=== PATIENT | female | born 1980 ===

== ENCOUNTER 2018-03-15 13:43 | Emergency (ER) | payer OTHER ==
[2018-03-15] MEDS ORDERED: Sodium Chloride 0.9% 1,000 ML IV STA (14:48)
--- NOTE | 2018-03-15 15:11 | ED PDOC ---
HPI: Abdomen History Per: Patient Additional Complaint(s): 37 y/o F presents to ED complaining of feverm chills, abdominal pain, nausea, multiple episodes of vomiting, diarrhea and generalized body aches that began at 1am today. Pt reports vomiting ~20 times, non-bloody, non-bilious vomit. Pt reports had >3 episodes of diarrhea, watery, non-bloody and non-mucous. 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 No recent travel and not eating out recently. Pt denies cough, nasal congestion, runny nose, chest pain, SOB, wheezing, rash or neck stiffness. -Pt was given Motrin and Zofran 2 hours ago, pain improved mildly but still nauseous. Pt is not tolerating PO, as she keep vomiting and could not hold gatorade at home. PMD: [facility] Meds: None PMHx: denied PSHx: denied SHx: Pt smokes and drinks alcohol socially. No rec drugs. OBGYN Hx: LMP 1 week ago, regular with normal bleeding. Pt is sexually active with 1 man, currently on OCP's and uses condoms. <Mahamed Clark - Last Filed: 03/15/18 14:52> <Stu Devi - Last Filed: 03/15/18 17:11> Time Seen by Provider: 03/15/18 14:37 Chief Complaint (Nursing): GI Problem Supervising Attending Note - Supervising Attending Note The Documented history was done by the: Physician Jive Developer The documented physical exam was done by the: Physician Jive Developer The documented procedures were done by the: Physician Jive Developer - Attestation: I have personally seen and examined this patient.: Yes I have fully participated in the care of the patient.: Yes I have reviewed all pertinent clinical information: Yes - Notes: Notes:: Abd pain diffuse like bubbling and cramping. <Stu Devi - Last Filed: 03/15/18 17:11> Past Medical History Vital Signs: Last Vital Signs Temp 98.4 F 03/15/18 14:09 Pulse 90 03/15/18 14:09 Resp 16 03/15/18 14:09 BP 121/73 03/15/18 14:09 Pulse Ox 97 03/15/18 14:09 - Medical History PMH: No Chronic Diseases - Surgical History Surgical History: No Surg Hx - Family History Family History: States: No Known Family Hx - Living Arrangements Living Arrangements: With Family - Social History Current smoker - smoking cessation education provided: Yes (socially) Alcohol: Social Drugs: Denies <Mahamed Clark - Last Filed: 03/15/18 14:52> Vital Signs: Last Vital Signs Temp 98.4 F 03/15/18 14:09 Pulse 90 03/15/18 14:09 Resp 16 03/15/18 14:09 BP 121/73 03/15/18 14:09 Pulse Ox 97 03/15/18 15:17 <Stu Devi - Last Filed: 03/15/18 17:11> - Home Medications Home Medications: Ambulatory Orders Medication Instructions Recorded Dicyclomine [Dicyclomine HCl] 10 mg PO DAILY PRN 5 Days cap 03/15/18 Famotidine [Pepcid] 20 mg PO DAILY PRN #6 tab 03/15/18 Ondansetron [Zofran] 4 mg PO Q8H PRN #6 tab 03/15/18 - Allergies Allergies/Adverse Reactions: Allergies Allergy/AdvReac Type Severity Reaction Status Date / Time No Known Allergies Allergy Verified 03/15/18 14:09 Review of Systems Constitutional: Positive for: Fever, Chills Eyes: Negative for: Pain ENT: Negative for: Ear Pain, Nose Congestion, Throat Pain Cardiovascular: Negative for: Chest Pain Respiratory: Negative for: Cough, Shortness of Breath, Sputum, Wheezing Gastrointestinal: Positive for: Nausea, Vomiting, Abdominal Pain, Diarrhea. Negative for: Constipation, Hematochezia Genitourinary Female: Negative for: Dysuria, Frequency, Hematuria Musculoskeletal: Negative for: Neck Pain Skin: Negative for: Rash Neurological: Negative for: Weakness, Numbness <Mahamed Clark - Last Filed: 03/15/18 14:52> Physical Exam - Physical Exam Appears: Positive for: Well, No Acute Distress Head Exam: Positive for: ATRAUMATIC, NORMAL INSPECTION Skin: Positive for: Normal Color, Warm Eye Exam: Positive for: Normal appearance, EOMI ENT: Negative for: Nasal Congestion, Pharyngeal Erythema, Tonsillar Exudate Neck: Positive for: Normal, Painless ROM, Supple Cardiovascular/Chest: Positive for: Regular Rate, Rhythm Respiratory: Positive for: Normal Breath Sounds. Negative for: Rhonchi Gastrointestinal/Abdominal: Positive for: Bowel Sounds (present), Soft, Tenderness (diffuse, mostly on epigastric and yesica-umbilical. ). Negative for: Distended, Guarding Extremity: Positive for: Normal ROM Neurologic/Psych: Positive for: Alert, Oriented <Mahamed Clark - Last Filed: 03/15/18 14:52> - Physical Exam Gastrointestinal/Abdominal: Positive for: Soft, Tenderness (diffuse) <Stu Devi - Last Filed: 03/15/18 17:11> - ECG O2 Sat by Pulse Oximetry: 97 <Mahamed Clark - Last Filed: 03/15/18 14:52> - Laboratory Results Result Diagrams: 03/15/18 15:35 03/15/18 15:35 Interpretation Of Abn Labs: no acute - ECG Pulse Ox Interpretation: Normal - Progress ED Course And Treament: 1709: Stable. AAOx3. Pain free. Tolerated PO. Fu with pcp. <Stu Dvei - Last Filed: 03/15/18 17:11> Medical Decision Making Medical Decision Making: At 14:45, pat was evaluated and examined with Dr Devi. Pt uncomfortble on bed. --CBC, CMP, urine qualitative BHCG. --IV fluids, Zofran, Tylenol, Bentyl will be administered. <Mahamed Clark - Last Filed: 03/15/18 14:52> Disposition <Mahamed Clark - Last Filed: 03/15/18 14:52> Counseled Patient/Family Regarding: Studies Performed, Diagnosis, Need For Followup, Rx Given - Disposition Disposition: Routine/Home Disposition Time: 17:10 <Stu Devi - Last Filed: 03/15/18 17:11> - Clinical Impression Clinical Impression: Abdominal pain, Vomiting, Diarrhea - Disposition Referrals: [facility] [Outside] - 03/18/18 Condition: STABLE Additional Instructions: Return if not better in 3 days. Prescriptions: Dicyclomine [Dicyclomine HCl] 10 mg PO DAILY PRN 5 Days cap PRN Reason: Diarrhea Famotidine [Pepcid] 20 mg PO DAILY PRN #6 tab PRN Reason: Pain Ondansetron [Zofran] 4 mg PO Q8H PRN #6 tab PRN Reason: Nausea/Vomiting Instructions: Stomach Ache and Stomach Upset, Nausea and Vomiting, Adult, Diarrhea in Adolescents and Adults Forms: [facility] (I[place]ic), [facility] ED School/Work Excuse
[2018-03-15 15:41] LABS: BASO % 0.2 % (0.0-2.0); EOS % 0.5 % (0.0-4.0); HEMOGLOBIN 13.2 g/dL (12.0-16.0); LYMPH # 1.3 K/uL (1.0-4.3); MEAN CELL VOLUME 89.1 fl (81.0-99.0); MEAN CORPUSCULAR HEMOGLOBIN 29.8 pg (27.0-31.0); MEAN CORPUSCULAR HGB CONC 33.5 g/dL (33.0-37.0); MEAN PLATELET VOLUME 8.8 fl (7.2-11.7); MONO # 0.5 K/uL (0.0-0.8); NEUT # 8.7 K/uL (1.8-7.0); NEUT % 82.3 % (50.0-75.0); RBC 4.42 Mil/uL (3.80-5.20); RED CELL DISTRIBUTION WIDTH 13.9 % (11.5-14.5); WHITE BLOOD COUNT 10.5 K/uL (4.8-10.8)
[2018-03-15 15:55] LABS: ALBUMIN 4.1 g/dL (3.5-5.0); ALT/SGPT 29 U/L (9-52); AST/SGOT 27 U/L (14-36); BLOOD UREA NITROGEN 14 mg/dl (7-17); CALCIUM 8.9 mg/dL (8.4-10.2); GFR NON-AFRICAN AMERICAN > 60
[2018-03-15 17:26] VITALS: BP 120/76; PULSE 78; RESP 19; TEMP 97; O2SAT 98
== END 2018-03-15 17:26 | disposition home or self-care (01) ==
LOC: H.ER 13:43
DX: R10.9 Unspecified abdominal pain (principal); R11.2 Nausea with vomiting, unspecified; F17.200 Nicotine dependence, unspecified, uncomplicated; R19.7 Diarrhea, unspecified
CPT/HCPCS: 80053; 81025; 85025; 96374; 99283; J2405; J7030